=== PATIENT | male | born 1935 | race Caucasian/White ===

== ENCOUNTER → 2016-08-29 | Outpatient (CLI) | payer BC ==
[2016-08-29 12:32] LABS: CHOLESTEROL 169 mg/dl (0-200); CHOLESTEROL/HDL RATIO 2.9; HDL CHOLESTEROL 58 mg/dl; LDL CHOLESTEROL CALCULATED 90 mg/dl; PROSTATE SPECIFIC ANTIGEN < 0.010 ng/ml (0.000-4.000); TRIGLYCERIDES 105 mg/dl (0-150); VERY LOW DENSITY LIPOPROT CALC 21 mg/dl
[2016-09-02 15:30] LABS: SEX HORMONE BINDING GLOBULIN 51 nmol/L (22-77); TESTOSTERONE,TOTAL 540 ng/dL (250-1100); ZZ25HYDROXYVITAMIN D2+D3 48 ng/mL (30-100)
[2016-09-04 02:19] LABS: REFERENCE QUEST TEST REPORT
== END | disposition home or self-care (01) ==
LOC: C.LAB 10:53
DX: E78.5 Hyperlipidemia, unspecified (principal); E55.9 Vitamin D deficiency, unspecified; C61 Malignant neoplasm of prostate; Z79.899 Other long term (current) drug therapy; R35.8 Other polyuria

== ENCOUNTER → 2017-01-07 | Outpatient (CLI) | payer BC ==
--- NOTE | 2017-01-07 14:39 | DIAGNOSTIC IMAGING REPORT ---
R FOOT MIN 3 VIEWS ROUTINE CLINICAL HISTORY: 81 years-old Male presenting with JAMMED TOE, pain at the third metatarsal. TECHNIQUE: Frontal, oblique, and lateral views of the right foot were obtained. COMPARISON: Correlation made to plain radiographs of the left foot from 2010. FINDINGS: Mildly impacted fracture of the base of the proximal phalanx of the third toe. No other definite fracture. The third metatarsophalangeal joint is preserved. Degenerative change of the first metatarsophalangeal joint noted. Prominent enthesophyte at the insertion of the Achilles tendon. Atherosclerosis. No significant soft tissue abnormality. IMPRESSION: Mildly impacted fracture of the base of the proximal phalanx of the third toe. The third MTP joint is spared Electronically signed by: Alonzo Johnson M.D. 01/07/2017 2:38 PM Dictated Date/Time: 01/07/2017 2:36 PM
== END ==
LOC: C.RAD 14:19
DX: S92.511A Displaced fracture of proximal phalanx of right lesser toe(s), initial encounter for closed fracture (principal); X58.XXXA Exposure to other specified factors, initial encounter

== ENCOUNTER → 2017-03-02 | Outpatient (CLI) | payer BC | END | disposition home or self-care (01) | LOC: C.LAB 11:27 | PROVIDERS: ATTEND Specialist | DX: C61 Malignant neoplasm of prostate (principal); Z79.899 Other long term (current) drug therapy; R35.8 Other polyuria; E55.9 Vitamin D deficiency, unspecified; E78.5 Hyperlipidemia, unspecified ==

== ENCOUNTER → 2017-08-18 | Outpatient (CLI) | payer BC ==
--- NOTE | 2017-08-18 21:35 | ECHOCARDIOGRAM REPORT ---
*NOTICE TO RECEIVING [employer] This information is strictly Confidential and protected under [place] law. [place] law prohibits you from making any further disclosure of this information unless further disclosure is expressly permitted by the written consent of the person to whom it pertains or is authorized by law. A general authorization for the release of medical or other information is not sufficient for this purpose. Hospital accepts no responsibility if the information is made available to any other person, INCLUDING THE PATIENT. Interpretation Summary * Name: GABRIELA VIVAS Study Date: 08/18/2017 01:15 PM BP: 149/82 mmHg * Patient Location: [facility] HR: 60 * : 1935 (M/d/yyyy) Gender: Male Height: 69 in * Age: 82 yrs Ethnicity: [place] Weight: 168 lb * Ordering Physician: James Iglesias * Referring Physician: James Iglesias D.O. * Performed By: Ruma Mott RCS * * Reason For Study: AORTIC STENOSIS * BSA: 1.9 m2 * -- Conclusions -- * 1. Normal left ventricular size and systolic function. EF 55-60%. No regional wall motion abnormalities. Mild concentric left ventricular hypertrophy. Type 1 diastolic dysfunction. * 2. There is moderate mitral annular calcification. * 3. There is mild to moderate mitral regurgitation. * 4. Sclerotic aortic valve without significant stenosis. * 5. Normal estimated right ventricular systolic pressure. * 6. Compared to prior study on 09/12/2013, similar findings. Procedure Details * A complete two-dimensional transthoracic echocardiogram was performed (2D, M-mode, Doppler and color flow Doppler). Left Ventricle * Normal left ventricular size and systolic function. EF 55-60%. No regional wall motion abnormalities. Mild concentric left ventricular hypertrophy. Type 1 diastolic dysfunction. Right Ventricle * Borderline right ventricular enlargement. * The right ventricular systolic function is normal as assessed by tricuspid annular plane systolic excursion (TAPSE) (normal >1.5 cm). Atria * The left atrial size is normal. * Right atrial size is normal. * There is no evidence of atrial septal defect, but resolution does not allow assessment for a patent foramen ovale. Mitral Valve * There is moderate mitral annular calcification. * There is no mitral valve stenosis. * There is mild to moderate mitral regurgitation. Tricuspid Valve * The tricuspid valve is not well visualized, but is grossly normal. * There is no tricuspid stenosis. * There is trace tricuspid regurgitation. Aortic Valve * The aortic valve is trileaflet. * Sclerotic aortic valve without significant stenosis. Pulmonic Valve * The pulmonary valve is inadequately visualized, but the Doppler data is adequate for interpretation. * There is no pulmonic valvular stenosis. * There is no significant pulmonary regurgitation. Great Vessels * The aortic root is normal size. * Ascending aorta of normal dimension Pericardium/Pleural * There is no pericardial effusion. Great Vessels * Normal inferior vena cava size and collapsability with sniff indicates a normal right atrial pressure of 3 mmHg MMode 2D Measurements and Calculations IVSd 1.3 cm IVSs 2.0 cm LVIDd 4.4 cm LVIDs 3.1 cm LVPWd 1.3 cm LVPWs 1.5 cm IVS/LVPW 0.98 FS 29.3 % EDV(Teich) 86.7 ml ESV(Teich) 37.7 ml EF(Teich) 56.5 % EDV(cubed) 83.9 ml ESV(cubed) 29.6 ml EF(cubed) 64.7 % % IVS thick 56.1 % % LVPW thick 19.0 % LV mass(C)d 210.0 grams LV mass(C)dI 109.5 grams/m\S\2 LV mass(C)s 217.9 grams LV mass(C)sI 113.6 grams/m\S\2 SV(Teich) 49.0 ml SI(Teich) 25.5 ml/m\S\2 SV(cubed) 54.3 ml SI(cubed) 28.3 ml/m\S\2 Ao root diam 3.5 cm Ao root area 9.6 cm\S\2 LA dimension 4.2 cm asc Aorta Diam 3.4 cm LA/Ao 1.2 LVOT diam 2.1 cm LVOT area 3.6 cm\S\2 LVAd ap4 30.9 cm\S\2 LVLd ap4 8.1 cm EDV(MOD-sp4) 97.5 ml EDV(sp4-el) 100.2 ml LVAs ap4 16.9 cm\S\2 LVLs ap4 6.7 cm ESV(MOD-sp4) 37.0 ml ESV(sp4-el) 36.1 ml EF(MOD-sp4) 62.0 % EF(sp4-el) 63.9 % LVAd ap2 27.0 cm\S\2 LVLd ap2 7.1 cm EDV(MOD-sp2) 89.1 ml EDV(sp2-el) 87.9 ml LVAs ap2 15.6 cm\S\2 LVLs ap2 6.1 cm ESV(MOD-sp2) 33.0 ml ESV(sp2-el) 33.7 ml EF(MOD-sp2) 62.9 % EF(sp2-el) 61.7 % LVLd %diff -15.03 % EDV(MOD-bp) 99.8 ml LVLs %diff -10.52 % ESV(MOD-bp) 36.4 ml EF(MOD-bp) 63.5 % SV(MOD-sp4) 60.5 ml SI(MOD-sp4) 31.5 ml/m\S\2 SV(MOD-sp2) 56.1 ml SI(MOD-sp2) 29.2 ml/m\S\2 SV(MOD-bp) 63.4 ml SI(MOD-bp) 33.1 ml/m\S\2 SV(sp4-el) 64.1 ml SI(sp4-el) 33.4 ml/m\S\2 SV(sp2-el) 54.2 ml SI(sp2-el) 28.3 ml/m\S\2 Doppler Measurements and Calculations MV E max imani 84.1 cm/sec MV A max imani 104.1 cm/sec MV E/A 0.81 MV P1/2t max imani 87.6 cm/sec MV P1/2t 104.9 msec MVA(P1/2t) 2.1 cm\S\2 MV dec slope 244.6 cm/sec\S\2 MV dec time 0.19 sec Ao V2 max 178.2 cm/sec Ao max PG 12.7 mmHg Ao max PG (full) 10.1 mmHg Ao V2 mean 121.3 cm/sec Ao mean PG 6.7 mmHg Ao mean PG (full) 5.6 mmHg Ao V2 VTI 37.1 cm ABRAHAM(I,A) 1.6 cm\S\2 ABRAHAM(I,D) 1.6 cm\S\2 ABRAHAM(V,A) 1.6 cm\S\2 ABRAHAM(V,D) 1.6 cm\S\2 LV V1 max PG 2.6 mmHg LV V1 mean PG 1.1 mmHg LV V1 max 81.2 cm/sec LV V1 mean 47.5 cm/sec LV V1 VTI 16.1 cm MR max imani 549.4 cm/sec MR max PG 120.7 mmHg SV(Ao) 354.3 ml SI(Ao) 184.7 ml/m\S\2 SV(LVOT) 57.9 ml SI(LVOT) 30.2 ml/m\S\2 PA V2 max 93.6 cm/sec PA max PG 3.5 mmHg TR max imani 240.2 cm/sec RVSP(TR) 26.3 mmHg RAP systole 3.0 mmHg
== END | disposition home or self-care (01) ==
LOC: C.CPL 13:05
DX: I35.0 Nonrheumatic aortic (valve) stenosis (principal)

== ENCOUNTER → 2017-11-18 | Outpatient (CLI) | payer BC ==
[2017-11-18 17:27] LABS: BLOOD UREA NITROGEN 16 mg/dl (7-18); CARBON DIOXIDE 29 mmol/L (21-32); CREATININE 1.17 mg/dl (0.60-1.40); GLUCOSE 132 mg/dl (70-99); POTASSIUM 4.1 mmol/L (3.5-5.1); SODIUM 139 mmol/L (136-145)
[2017-11-19 06:11] LABS: HEMOGLOBIN A1C 5.8 % (4.5-5.6)
== END | disposition home or self-care (01) ==
LOC: C.LAB 14:58
DX: R73.9 Hyperglycemia, unspecified (principal); E03.9 Hypothyroidism, unspecified; I10 Essential (primary) hypertension

== ENCOUNTER 2022-01-11 12:24 | Observation (INO) ==
[2022-01-11 13:53] LABS: Basophils # (auto) 0.04 K/uL (0-0.2); Basophils % (auto) 0.4 %; Eosinophils # (auto) 0.08 K/uL (0-0.50); Eosinophils % (auto) 0.8 %; Hematocrit (blood only) 40.3 % (40.1-51.0); Hemoglobin 14.1 g/dl (14.0-18.0); Immature Granulocytes # (auto) 0.06 K/uL (0.00-0.02); Immature Granulocytes % (auto) 0.6 %; Lymphocytes # (auto) 1.42 K/uL (1.2-3.4); Mean Corpuscular Hemoglobin 33.7 pg (25.0-34.0); Mean Corpuscular Volume 96.4 fL (80.0-100.0); Mean Platelet Volume 10.8 fL (9.4-12.4); Monocytes % (auto) 10.9 %; Neutrophils # (auto) 7.42 K/uL (1.4-6.5); Neutrophils % (auto) 73.3 %; Platelet Count 255 K/uL (130-400); RDW Coefficient of Variation 13.3 % (11.5-14.5); RDW Standard Deviation 47.4 fL (36.4-46.3); Red Blood Count 4.18 M/uL (4.63-6.08); White Blood Count 10.12 K/ul (4.8-10.8)
[2022-01-11 14:05] LABS: INR 1.2 (0.9-1.1); Partial Thromboplastin Ratio 1.1; Partial Thromboplastin Time 30.1 Seconds (21.0-31.0); Prothrombin Time 12.3 Seconds (9.0-12.0)
[2022-01-11 14:18] LABS: Troponin I High Sensitivity 16.7 pg/ml (0-20)
[2022-01-11 14:40] LABS: Albumin Globulin Ratio 1.2 (0.9-2); Albumin Level 3.6 gm/dl (3.4-5.0); BUN Creatinine Ratio 12.5 (10-20); Bilirubin,Total 1.6 mg/dl (0.2-1.0); Calcium 8.9 mg/dl (8.5-10.1); Creatinine Clr Calc Pharmacy 51.9 ml/min; Est GFR (African American) 75.5 ml/min; Est GFR (Non-African American) 65.2 ml/min; Globulin 2.9 gm/dl (2.5-4.0); Total Protein 6.5 gm/dl (6.0-8.3)
--- NOTE | 2022-01-11 14:44 | Emergency Department Note ---
Impression & Plan Heart block AV second degree, Bronchitis ED Provider Note NAME: GABRIELA VIVAS AGE: 86 SEX: M : 1935 ARRIVES VIA: Walk-In INFORMANT: Patient, ED PROVIDER(S): Sean Pablo DO CHIEF COMPLAINT: Abnormal EKG HPI: The patient is an 86-year-old male who presented to the emergency department for evaluation of abnormal EKG. The patient started having cough and cold symptoms over the course the last 3 to 5 days. He has noticed a cough which is sometimes productive. He denies having any fever. He has had no hemoptysis or chest pain. He denies having any lower extremity swelling. He went to [facility] to be seen and was sent to the emergency department because his EKG was abnormal. The patient denies having any palpitations. He does have some shortness of breath with exertion. He denies having any abdominal pain or weight loss. He states his symptoms are moderate. He has had no changes to his medications. He states has been compliant with his usual outpatient medications. ROS: See above HPI for pertinent positives & negatives. A total of 10 systems reviewed and were otherwise negative. PAST MEDICAL HISTORY: See Below PAST SURGICAL HISTORY: See Below FAMILY HISTORY: See Below SOCIAL HISTORY: See Below HOME MEDICATIONS: See Below ALLERGIES: See Below VITALS: See Below PHYSICAL EXAMINATION: GENERAL: Patient is awake alert in no acute distress patient is resting comfo rtably and showing no signs of anxiety EYES: The conjunctivae are clear. The pupils are round and reactive. EARS, NOSE, MOUTH AND THROAT: The nose is without any evidence of any deformity. Mucous membranes are moist. Tongue is midline. NECK: The neck is nontender and supple. RESPIRATORY: Scattered rhonchi were noted throughout. There is no conversational dyspnea or tachypnea. CARDIOVASCULAR: Irregular heart sounds were noted auscultation. No definite murmur was noted. GASTROINTESTINAL: The abdomen is soft. Abdomen is nontender. MUSCULOSKELETAL/EXTREMITIES: There is no evidence of gross deformity full range of motion is noted in the hips and shoulders. SKIN: There is no obvious evidence of any rash. There are no petechiae, pallor or cyanosis noted. NEUROLOGIC: Patient is awake alert and oriented x3 MEDICAL DECISION MAKING: The patient is an 86-year-old male who presented to the emergency department for evaluation of cough. The patient initially went to an urgent care center for a cough. He was noted to have an irregular heartbeat. He had a twelve-lead done and was sent to the emergency department because of a heart block. Initially I felt this was secondary to second-degree heart block type I. Eventually while patient was on the cardiac sonographer he had episodes that appear to be more consistent with second-degree heart block type II. He also had frequent PVCs. I discussed patient's laboratory and radiographic studies with him. I discussed his case with the on-call [facility] bilingual inside sales representative. I also discussed this ca se with the on-call [facility] hospitalist group. They have agreed to evaluate the patient for further management and disposition. Triage Nursing notes reviewed. Prior medical records reviewed Vital Signs: reviewed and remarkable for elevated blood pressure. Differential diagnosis: Premature contractions, electrolyte abnormality, cardiac dysrhythmia, thyroid dysfunction, pulmonary embolism, infection, gastrointestinal, as well as other pathologies. ER treatment provided: See below Diagnostics interpreted by me: ECG: EKG was obtained in the emergency department. My interpretation is heart block at 73 bpm. Frequent PVCs were noted. No acute ST segment abnormalities w ere noted. This was compared to a tracing from March 13, 2009. The changes are new compared to the previous tracing. Cardiac Monitoring: An order was placed for continuous cardiac monitoring. The monitor shows second-degree heart block with frequent PVCs at 70 bpm. Laboratory studies: As stated above and show below. Imaging studies: See below Consultation(s): I discussed this case with Carlos who is on-call for the [facility] hospitalist group. I discussed this case with Dr. Ruiz who is on-call for the [facility] cardiology group. Past Med/Surg History Medical History Hypertension Primary osteoarthritis of left knee Prostate cancer Social History Smoking Status: Never smoker Preferred Language: Slovak Feels Safe at Home: Yes Allergies Allergies Allergy/AdvReac Type Severity Reaction Status Date / Time No Known Allergies Allergy Unverified 11/02/19 09:10 Home Meds Home Medications Medication Instructions Recorded Confirmed atorvastatin 20 mg tablet 20 mg PO DAILY 11/02/19 11/02/19 lisinopril 20 mg tablet 20 mg PO DAILY 11/02/19 11/02/19 Results & Data (ED) Vital Signs Vital Signs - 24 hr 01/11/22 12:39 01/11/22 13:24 01/11/22 13:24 Temperature 36.9 C Temperature Source Temporal Artery Scan Pulse Rate 61 70 Pulse Rate from SpO2 Sensor Pulse Rhythm Regular Regular Pulse Strength Normal Respiratory Rate 18 19 Respiratory Effort / Characteristics Non-Labored Spontaneous Respiratory Depth Normal Respiratory Pattern Regular Blood Pressure 166/79 H Blood Pressure Mean 108 Blood Pressure Position Sitting Pulse Oximetry 96 98 97 Oxygen Delivery Method Room Air Room Air Sepsis Recent Fever Within 48 Hours No Sepsis New/Unexplained Change in Mental Status No Sepsis Action Taken by Nursing No Action Required 01/11/22 14:08 01/11/22 14:30 01/11/22 14:30 Temperature Temperature Source Pulse Rate 74 Pulse Rate from SpO2 Sensor 70 80 Pulse Rhythm Pulse Strength Respiratory Rate 13 Respiratory Effort / Characteristics Respiratory Depth Respiratory Pattern Blood Pressure 150/125 H Blood Pressure Mean 133 Blood Pressure Position Pulse Oximetry 96 90 Oxygen Delivery Method Sepsis Recent Fever Within 48 Hours Sepsis New/Unexplained Change in Mental Status Sepsis Action Taken by Nursing 01/11/22 15:00 01/11/22 15:30 01/11/22 15:31 Temperature Temperature Source Pulse Rate 76 90 Pulse Rate from SpO2 Sensor 42 L 46 L Pulse Rhythm Pulse Strength Respiratory Rate 18 26 H Respiratory Effort / Characteristics Respiratory Depth Respiratory Pattern Blood Pressure 135/113 H Blood Pressure Mean 120 Blood Pressure Position Pulse Oximetry 95 95 Oxygen Delivery Method Sepsis Recent Fever Within 48 Hours Sepsis New/Unexplained Change in Mental Status Sepsis Action Taken by Nursing 01/11/22 15:31 Temperature Temperature Source Pulse Rate 86 Pulse Rate from SpO2 Sensor 46 L Pulse Rhythm Pulse Strength Respiratory Rate 23 Respiratory Effort / Characteristics Respiratory Depth Respiratory Pattern Blood Pressure Blood Pressure Mean Blood Pressure Position Pulse Oximetry 94 Oxygen Delivery Method Sepsis Recent Fever Within 48 Hours Sepsis New/Unexplained Change in Mental Status Sepsis Action Taken by [facility] Medications Current Medication List: was personally reviewed by me Laboratory Data Attestation: I reviewed the patient's lab results. Result diagrams: 01/11/22 13:43 01/11/22 13:43 Lab Results 01/11/22 01/11/22 01/11/22 Range/Units 13:43 13:43 13:43 WBC 10.12 (4.8-10.8) K/ul RBC 4.18 L (4.63-6.08) M/uL Hgb 14.1 (14.0-18.0) g/dl Hct 40.3 (40.1-51.0) % MCV 96.4 (80.0-100.0) fL MCH 33.7 (25.0-34.0) pg MCHC 35.0 (32.0-36.0) g/dL RDW Std Deviation 47.4 H (36.4-46.3) fL RDW Coeff of Diamond 13.3 (11.5-14.5) % Plt Count 255 (130-400) K/uL MPV 10.8 (9.4-12.4) fL Immature Gran % (Auto) 0.6 % Neut % (Auto) 73.3 % Lymph % (Auto) 14.0 % [place] % (Auto) 10.9 % Eos % (Auto) 0.8 % Baso % (Auto) 0.4 % Neut # (Auto) 7.42 H (1.4-6.5) K/uL Lymph # (Auto) 1.42 (1.2-3.4) K/uL [place] # (Auto) 1.10 H (0.24-0.82) K/uL Eos # (Auto) 0.08 (0-0.50) K/uL Baso # (Auto) 0.04 (0-0.2) K/uL Immature Gran # (Auto) 0.06 H (0.00-0.02) K/uL PT 12.3 H (9.0-12.0) Seconds INR 1.2 H (0.9-1.1) APTT 30.1 (21.0-31.0) Seconds PTT Ratio 1.1 Sodium 138 (136-145) mmol/L Potassium 4.0 (3.5-5.1) mmol/L Chloride 102 (98-107) mmol/L Carbon Dioxide 30 (21-32) mmol/L Anion Gap 6 (3-11) BUN 13 (6-23) mg/dl Creatinine 1.04 (0.6-1.4) mg/dl Est Cr Clr Drug Dosing 51.9 ml/min Est GFR ( Amer) 75.5 ml/min Est GFR (Non-Af Amer) 65.2 ml/min BUN/Creatinine Ratio 12.5 (10-20) Glucose 100 H (70-99(Fasting)) mg/dl Calcium 8.9 (8.5-10.1) mg/dl Magnesium (1.7-2.4) mg/dl Total Bilirubin 1.6 H (0.2-1.0) mg/dl AST 17 (13-39) U/L ALT 20 (7-52) U/L Alkaline Phosphatase 63 (34-104) U/L Troponin I High Sens 16.7 (0-20) pg/ml Total Protein 6.5 (6.0-8.3) gm/dl Albumin 3.6 (3.4-5.0) gm/dl Globulin 2.9 (2.5-4.0) gm/dl Albumin/Globulin Ratio 1.2 (0.9-2) TSH (0.300-4.500) uIu/ml 01/11/22 01/11/22 Range/Units 13:43 13:43 WBC (4.8-10.8) K/ul RBC (4.63-6.08) M/uL Hgb (14.0-18.0) g/dl Hct (40.1-51.0) % MCV (80.0-100.0) fL MCH (25.0-34.0) pg MCHC (32.0-36.0) g/dL RDW Std Deviation (36.4-46.3) fL RDW Coeff of Diamond (11.5-14.5) % Plt Count (130-400) K/uL MPV (9.4-12.4) fL Immature Gran % (Auto) % Neut % (Auto) % Lymph % (Auto) % [place] % (Auto) % Eos % (Auto) % Baso % (Auto) % Neut # (Auto) (1.4-6.5) K/uL Lymph # (Auto) (1.2-3.4) K/uL [place] # (Auto) (0.24-0.82) K/uL Eos # (Auto) (0-0.50) K/uL Baso # (Auto) (0-0.2) K/uL Immature Gran # (Auto) (0.00-0.02) K/uL PT (9.0-12.0) Seconds INR (0.9-1.1) APTT (21.0-31.0) Seconds PTT Ratio Sodium (136-145) mmol/L Potassium (3.5-5.1) mmol/L Chloride (98-107) mmol/L Carbon Dioxide (21-32) mmol/L Anion Gap (3-11) BUN (6-23) mg/dl Creatinine (0.6-1.4) mg/dl Est Cr Clr Drug Dosing ml/min Est GFR ( Amer) ml/min Est GFR (Non-Af Amer) ml/min BUN/Creatinine Ratio (10-20) Glucose (70-99(Fasting)) mg/dl Calcium (8.5-10.1) mg/dl Magnesium 2.1 (1.7-2.4) mg/dl Total Bilirubin (0.2-1.0) mg/dl AST (13-39) U/L ALT (7-52) U/L Alkaline Phosphatase (34-104) U/L Troponin I High Sens (0-20) pg/ml Total Protein (6.0-8.3) gm/dl Albumin (3.4-5.0) gm/dl Globulin (2.5-4.0) gm/dl Albumin/Globulin Ratio (0.9-2) TSH 0.794 (0.300-4.500) uIu/ml Discharge Plan Visit Data Chief Complaint: Cardiac Assessment Stated Complaint: COUGH, SOB, ABNORMAL EKG ED Provider: Sean Pablo Discharge Problem: Heart block AV second degree, Bronchitis Patient Disposition: Being Evaluated by Hospitalist Forms Stand Alone Forms: My [facility] Prescriptions Prescriptions: No Action triamcinolone acetonide [Kenalog] 40 mg/mL suspension 80 mg IA ONCE Qty: 2 0RF lisinopril 20 mg tablet 20 mg PO DAILY atorvastatin 20 mg tablet 20 mg PO DAILY Referrals Referrals: Roverto Kwok, [Primary Care Provider] -
[2022-01-11] MEDS ORDERED: BENZONATATE 100 MG CAPSULE PO ONE (15:36)
[2022-01-11] MEDS ORDERED: ALBUT/IPRATROP 3MG/0.5MG NEB 3 ML VIAL NEB STA (15:36)
--- NOTE | 2022-01-11 15:52 | History & Physical Report ---
Date of Service January 11, 2022 Assessment & Plan (1) Heart block AV second degree: Plan: -Admit to med tele -Patient is currently afebrile, hemodynamically stable, and stable on RA -Patient currently with irregular rhythm, ECG obtained in the ED looks more like a Mobitz type I block but difficult to tell -Patient has been asymptomatic -Spoke with Dr. Ruiz of Cardiology, appreciate his help, recommended observation on tele overnight and to obtain new echo -TTE ordered, will monitor on tele, Cardiology consult placed -AM CBC and BMP (2) Bronchitis: Plan: -No leukocytosis or left shift on labs from today -Chest xray without obvious consolidation, will wait for final read -Patient has been afebrile, will add on procal -Hold abx for now and treat symptomatically with Robitussin and DuoNebs -Confirmed with the patient that he has been on Lisinopril for 2+ years and has never developed a cough while on it (3) Hypertension: Plan: -Hemodynamically stable -Continue lisinopril Plan The patient was discussed with Dr. Garcia at the time of admission History of Present Illness Chief Complaint: Abnormal ECG at acute care Primary Care Provider: Roverto KwokDO Orr is an 86 year old male with a PMH significant for HTN, hyperlipidemia, adenocarcinoma of the prostate, mitral regurgitation, aortic valve sclerosis, and osteoporosis who presented to the [facility] on 01/11/22 after being sent from acute care for abnormal ECG. Per the ED staff, the patient developed a cough approximately one week ago. Today he went to acute care to be seen for his cough and then noticed his heart sounded irregular on exam. They obtained an ECG and were concerned for possible heart block and sent him to the ED. In the ED the patient was found to be afebrile, hemodynamically stable, and stable on room air. Labs were unremarkable including a high sensitivity troponin of 16.7. The patient was monitored on tele while in the ED and there was concern for possible Mobitz type II block. Chest xray was pending at the time of the admission. We were asked to admit the patient for further monitoring and workup of the possible arrhythmia. At the time of the exam the patient was resting comfortably in bed in no acute distress with his sitting bedside. He states that he has had a productive cough for the past week. The patient and his stay very active and he states that he has not experienced recent chest pain, SOB, light headedness, dizziness, or syncope. They are often outside hiking and biking but he has not noticed any recent tick bites. He states the he checks his blood pressure a few times a week and the BP cuff also checks his heart rate. Recently he has noticed that his HR will fall into the 40's, normally his baseline is in the 60's. He has not noticed significant changes in his blood pressure. When asked, he denies symptoms when his HR is that low. When asked about previous heart murmurs he states that his old pcp who recently retired mentioned something about a murmur and doing surveillance echo every 6 months. I spoke to he and his about staying overnight to be monitored, obtaining a new echo, and being seen by cardiology, they would like to proceed with that plan. Allergies Allergy/AdvReac Type Severity Reaction Status Date / Time No Known Allergies Allergy Verified 01/11/22 15:45 Home Medications Medication Instructions Recorded Confirmed Type atorvastatin 20 mg tablet 20 mg PO DAILY 11/02/19 01/11/22 History lisinopril 20 mg tablet 20 mg PO DAILY 11/02/19 01/11/22 History cholecalciferol (vitamin D3) 125 125 mcg PO DAILY 01/11/22 01/11/22 History mcg (5,000 unit) tablet (Vitamin D3) coenzyme Q10 100 mg capsule 100 mg PO DAILY 01/11/22 01/11/22 History (CoQ-10) cyanocobalamin (vitamin B-12) 1,000 mcg PO DAILY 01/11/22 01/11/22 History 1,000 mcg tablet (Vitamin B-12) herbal drugs 2 cap PO DAILY 01/11/22 01/11/22 History omega 9-eeb-tbg-fish oil 1,000 mg 1 cap PO DAILY 01/11/22 01/11/22 History (120 mg-180 mg) capsule (Fish Oil) pentoxifylline 400 mg 400 mg PO BIDM 01/11/22 01/11/22 History tablet,extended release psyllium husk 0.52 gram capsule 1.04 g PO DAILY 01/11/22 01/11/22 History sildenafil (pulm.hypertension) 20 20 - 1,000 mg PO DIRECTED PRN 01/11/22 01/11/22 History mg tablet Sexual Activity vit C 250 mg-vit E 90 mg-zinc 40 1 tab PO BID 01/11/22 01/11/22 History mg-copper 1 [id number]-[id number] capsule (PreserVision AREDS-2) Past Med/Surg History Medical History (Updated 01/11/22 @ 16:23 by Carlos Coppola PA-C) Hypertension Primary osteoarthritis of left knee Prostate cancer Social History Smoking Status: Never smoker Preferred Language: Moldovan Feels Safe at Home: Yes Review of Systems Review of Systems: Denies current fever, chills, headache, changes in vision, hearing, taste, and smell, chest pain, SOB, abdominal pain, nausea, vomiting, diarrhea, hematemesis, melena, dysuria, hematuria, and recent falls. All systems have been reviewed and are otherwise negative. Physical Exam Physical Exam: Physical Exam: General: In no acute distress, younger than stated age, well-nourished, good hygiene HEENT: Normocephalic, atraumatic, no scleral icterus, pupils around round, symmetrical, and reactive to light, moist mucus membranes, no JVD, trachea midline, no thyromegaly Chest/Pulm: No respiratory distress, symmetrical chest expansion, expiratory wheezing noted throughout the BL lungs Cardiac: regular rate, irregular rhythm, 4/6 systolic murmur noted Abdomen: Negative for ascites and bruising, normoactive bowel sounds, soft, non-tender to palpation throughout Musculoskeletal: Symmetrical and without signs of acute trauma, upper and lower extremities with full ROM, no atrophy, spasticity, or flaccidity Extremities: Radial, dorsalis pedis, and posterior tibial pulses are intact and symmetrical, no edema noted in the BL LE's Skin: Warm, dry, no rashes , lesions, or scars noted Neuro: Alert and oriented to person, place, month, year, and president, no focal defects, CN II-XII tested and intact, finger to nose test negative, no tremors noted Psych: No acute distress, calm and cooperative during the exam Results & Data Results & Data ([facility]) Vital Signs (Past 12 Hours) Vital Signs Temp Pulse Resp BP Pulse Ox O2 Del Method 01/11/22 15:31 86 23 94 01/11/22 15:31 135/113 H 01/11/22 15:30 90 26 H 95 01/11/22 15:00 76 18 95 01/11/22 14:30 74 13 90 01/11/22 14:30 150/125 H 01/11/22 14:08 96 01/11/22 13:24 70 19 97 01/11/22 13:24 98 Room Air 01/11/22 12:39 36.9 C 61 18 166/79 H 96 Room Air Laboratory Results Abnormal lab results 01/11/22 01/11/22 01/11/22 Range/Units 13:43 13:43 13:43 RBC 4.18 L (4.63-6.08) M/uL RDW Std Deviation 47.4 H (36.4-46.3) fL Neut # (Auto) 7.42 H (1.4-6.5) K/uL [place] # (Auto) 1.10 H (0.24-0.82) K/uL Immature Gran # (Auto) 0.06 H (0.00-0.02) K/uL PT 12.3 H (9.0-12.0) Seconds INR 1.2 H (0.9-1.1) Glucose 100 H (70-99(Fasting)) mg/dl Total Bilirubin 1.6 H (0.2-1.0) mg/dl ECG Additional Comments: Poor data quality, interpretation may be adversely affected Sinus rhythm with 1st degree A-V block with frequent Premature ventricular complexes Left axis deviation Abnormal ECG When compared with ECG of 13-MAR-2009 15:40, Premature ventricular complexes are now Present QRS axis Shifted left Code Status & VTE Plan Code Status full code VTE Prophylaxis Plan VTE Prophylaxis will be ordered: Yes PG Care Time/CCT Total # of Minutes Spent Total Time Spent with Patient: Total time spent is greater than 50% in coordination of care (as documented) at patient's floor/unit and/or counseling patient: Coding Level of Care Code New Pt INT OBSERVATION CARE 50M LVL 2 Patient Type New History Comprehensive Exam Comprehensive Medical Decision Making Moderate Complexity Diagnoses Heart block AV second degree I44.1 Bronchitis J40 Hypertension I10
[2022-01-11 16:25] LABS: Influenza A virus by PCR Negative (Neg); Influenza B virus by PCR Negative (Neg); RSV by PCR Negative (Neg); SARS CoV2 RNA(COVID-19) InHosp NEGATIVE (Negative)
--- NOTE | 2022-01-11 16:55 | Electrocardiogram Report ---
Test Reason : Blood Pressure : / mmHG Vent. Rate : 073 BPM Atrial Rate : 073 BPM P-R Int : 280 ms QRS Dur : 092 ms QT Int : 400 ms P-R-T Axes : 000 -35 069 degrees QTc Int : 440 ms Poor data quality, interpretation may be adversely affected Sinus rhythm with 1st degree A-V block with frequent Premature ventricular complexes Left axis deviation Abnormal ECG When compared with ECG of 13-MAR-2009 15:40, Premature ventricular complexes are now Present QRS axis Shifted left Confirmed by Usman Ruiz ([id number]) on 01/11/2022 4:55:14 PM Referred By: Confirmed By:Usman Ruiz
[2022-01-11 17:07] LABS: Lyme Ab IgG w/WB Rflx Negative (Negative)
--- NOTE | 2022-01-11 17:18 | XRay Report ---
XR chest 1V portable CLINICAL HISTORY: Palpitations. COMPARISON STUDY: Chest radiograph September 07, 2015. FINDINGS: Lung volumes are normal. Lungs are clear. There is no pneumothorax or pleural effusion. The re is mild cardiomegaly. Mediastinal contours are normal. There is no evidence for pulmonary edema. M ild interstitial thickening is likely within normal limits. IMPRESSION: No acute cardiopulmonary findings. Cardiomegaly. ACT 112: Negative or not required by law. Electronically signed by: Dereck Orozco M.D. 01/11/2022 5:17 PM
[2022-01-11 17:28] LABS: Lyme Ab IgM w/WB Rflx Equivocal (Negative)
[2022-01-11] MEDS ORDERED: ACETAMINOPHEN 325 MG TAB PO PRN (19:25)
[2022-01-11] MEDS ORDERED: ALBUT/IPRATROP 3MG/0.5MG NEB 3 ML VIAL NEB SCH (19:25)
[2022-01-11] MEDS ORDERED: ENOXAPARIN INJ 40 MG/0.4 ML SYR SQ SCH (19:25)
[2022-01-11] MEDS ORDERED: PNEUMOCOCCAL POLYSACCHARIDES 25 MCG/0.5 ML VIAL/SYR IM ONE (20:03)
[2022-01-11] MEDS ORDERED: INFLUENZA VACCINE HIGH DOSE PF 65+ 0.7 ML SYR IM ONE (20:03)
[2022-01-11] MEDS: PENTOXIFYLLINE 400MG EXT REL TAB PO SCH (20:09)
[2022-01-11] MEDS ORDERED: ALBUT/IPRATROP 3MG/0.5MG NEB 3 ML VIAL NEB PRN (20:27)
[2022-01-12 07:17] LABS: Hematocrit (blood only) 38.6 % (40.1-51.0); Hemoglobin 13.5 g/dl (14.0-18.0); Mean Corpuscular Hemoglobin 33.4 pg (25.0-34.0); Mean Corpuscular Volume 95.5 fL (80.0-100.0); Mean Platelet Volume 10.9 fL (9.4-12.4); Platelet Count 257 K/uL (130-400); RDW Coefficient of Variation 13.1 % (11.5-14.5); RDW Standard Deviation 45.9 fL (36.4-46.3); Red Blood Count 4.04 M/uL (4.63-6.08); White Blood Count 9.74 K/ul (4.8-10.8)
[2022-01-12 08:04] LABS: BUN Creatinine Ratio 14.1 (10-20); Calcium 8.7 mg/dl (8.5-10.1); Creatinine Clr Calc Pharmacy 54.6 ml/min; Est GFR (African American) 80.2 ml/min; Est GFR (Non-African American) 69.2 ml/min; Potassium 3.7 mmol/L (3.5-5.1)
[2022-01-12] MEDS ORDERED: ATORVASTATIN 20 MG TAB PO SCH (09:00)
[2022-01-12] MEDS ORDERED: CYANOCOBALAMIN (B-12) 500 MCG TABLET PO SCH (09:00)
[2022-01-12] MEDS ORDERED: CHOLECALCIFEROL 5,000 UNITS 125 MCG TAB PO SCH (09:00)
[2022-01-12] MEDS ORDERED: NON-FORMULARY MEDICATION (Coenzyme Q10 [Coq-10] 100 mg Capsule) PO SCH (09:00)
[2022-01-12] MEDS ORDERED: OMEGA-3 (PURIFIED FISH OIL) 1 GM CAP PO SCH (09:00)
[2022-01-12] MEDS ORDERED: lisinopril 20 MG TAB PO SCH (09:00)
[2022-01-12] MEDS: PENTOXIFYLLINE 400MG EXT REL TAB PO SCH ×2 (09:33→17:57)
[2022-01-12] MEDS: guaiFENesin SUGAR FREE 200 MG/10 ML UDC PO PRN ×2 (09:33→16:19)
--- NOTE | 2022-01-12 11:38 | XCELERA ---
[id number]}___[id number]
--- NOTE | 2022-01-12 16:55 | Cardiology Consultation ---
Date of Consultation January 12, 2022 Assessment & Plan (1) Mobitz (type) I (Wenckebach's) atrioventricular block: (2) Frequent PVCs: (3) Aortic stenosis: (4) Hypertension: (5) Dyslipidemia: Plan ASSESSMENT/PLAN: 1. Mobitz 1: Based on review of telemetry, no evidence of more advanced AV block noted. No specific intervention necessary therapeutically at this time. He is completely asymptomatic. Recommend 30 day event monitor as an outpatient. This has been requested through the cardiology outpatient office. Seek immediate medical attention for symptoms such as lightheadedness, syncope, or near-syncope. 2. Aortic stenosis: Discussed the diagnosis and natural history. Non severe, currently moderate based on echo. He is asymptomatic. Can continue with his usual exercise. Discussed symptoms that may occur for more significant stenosis and he should seek medical attention if they should occur, such as lightheadedness, syncope, near-syncope, chest pain, shortness of breath, and reduced exercise tolerance. No indication for aortic valve replacement at this time. Will monitor as an outpatient. 3. PVCs: Discussed the diagnosis. Asymptomatic. This is the likely cause for his reduced heart rate on blood pressure monitoring, due to a pulse deficit. This was discussed with he and his family. 4. Hypertension: Blood pressure has been acceptable to mildly hypertensive at times. No changes made at this time. 5. Dyslipidemia: He is on statin therapy as directed by his PCP. 6. Cough: He is concerned about bronchitis. Will defer to hospitalist service. 7. Disposition: Follow-up in the cardiology outpatient office in about 6 weeks, so that a 4 week event monitor can be performed prior. This has been requested through the outpatient office and will likely be arranged at the beginning of this upcoming week. Plan of care was communicated to patient, his , and his son who were present at the bedside. His daughter and granddaughter participated via speaker phone. Plan of care communicated with Dr. Garcia, primary hospitalist. Today's visit was 48 minutes in duration, which includes examining patient, counseling patient and multiple family members, coordinating care, reviewing records, and completing documentation. Thank you for allowing me to participate in the care of your patient. Please call for any other questions or concerns. Sincerely, Parviz Toscano M.D. History of Present Illness Reason for Consultation: "Arrhythmia Requesting Physician: Carlos Coppola Attending Physician: Harmeet Garcia History of Present Illness Mr. Lowe ('grace mendenhall') is a very pleasant 86-year-old gentleman with a history significant for hypertension and dyslipidemia. He was hospitalized on 01/11/2022 after going to Urgent Care setting for cough, concerning for bronchitis. While there, he was noted to have an abnormal ECG, concerning for heart block and was sent to the emergency department. He states that he has not been having any fevers but has had a nonproductive cough. It feels as though there is sputum but is difficult to bring up the sputum. There was concern for second-degree AV block according to admitting note. He was completely asymptomatic in this regard. He denies syncope, near-syncope, shortness of breath, chest pain, palpitations. He also denies edema, melena, hematochezia, or hematuria. He is very active. He rides bicycle 3 days per week, for at least 20 miles each day. He recently road over 120 miles at [place], within the past 1.5 weeks and did so without cardiac issues. He also enjoys golfing. Exercise tolerance has remained stable. He notes that for the past month or so while checking his blood pressure his heart rate has been in the 40s when it was chronically in the 60s. Once again, he was completely asymptomatic. Review of systems: As above. Review of systems otherwise negative/unremarkable. Family history: Father had pacemaker in his 70s and at the age of 74 from [place]. Social history: He denies tobacco or drug abuse. Occasional alcohol. Lives at home with his . Two children. He has a granddaughter, Alma, who is a physician engineer assistant in [place]. 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 At the end of today's visit, his son, Héctor, and his presented at the bedside. Allergies Allergy/AdvReac Type Severity Reaction Status Date / Time No Known Allergies Allergy Verified 01/11/22 15:45 Home Medications Medication Instructions Recorded Confirmed Type atorvastatin 20 mg tablet 20 mg PO DAILY 11/02/19 01/11/22 History lisinopril 20 mg tablet 20 mg PO DAILY 11/02/19 01/11/22 History cholecalciferol (vitamin D3) 125 125 mcg PO DAILY 01/11/22 01/11/22 History mcg (5,000 unit) tablet (Vitamin D3) coenzyme Q10 100 mg capsule 100 mg PO DAILY 01/11/22 01/11/22 History (CoQ-10) cyanocobalamin (vitamin B-12) 1,000 mcg PO DAILY 01/11/22 01/11/22 History 1,000 mcg tablet (Vitamin B-12) herbal drugs 2 cap PO DAILY 01/11/22 01/11/22 History omega 0-xyn-tvk-fish oil 1,000 mg 1 cap PO DAILY 01/11/22 01/11/22 History (120 mg-180 mg) capsule (Fish Oil) pentoxifylline 400 mg 400 mg PO BIDM 01/11/22 01/11/22 History tablet,extended release psyllium husk 0.52 gram capsule 1.04 g PO DAILY 01/11/22 01/11/22 History sildenafil (pulm.hypertension) 20 20 - 1,000 mg PO DIRECTED PRN 01/11/22 01/11/22 History mg tablet Sexual Activity vit C 250 mg-vit E 90 mg-zinc 40 1 tab PO BID 01/11/22 01/11/22 History mg-copper 1 [id number]-[id number] capsule (PreserVision AREDS-2) Patient History Medical History (Updated 01/12/22 @ 17:03 by Ernesto Toscano MD) Aortic stenosis Dyslipidemia Frequent PVCs Hypertension Mobitz (type) I (Wenckebach's) atrioventricular block Primary osteoarthritis of left knee Prostate cancer Social History Smoking Status: Never smoker Hx Alcohol Use: Yes Alcohol type: beer Hx Substance Use: No Preferred Language: Emirati Communication Ability: Effective Brazing Machine Feeder Required: No Beliefs That Will Affect Care: None Current Living Situation: Spouse Other Information That Helps Us Care for You: No Feels Safe at Home: Yes Safety Concerns: Feels Safe At This Time Assistive Devices: None Physical Exam Physical Exam: Gen.: No acute distress. Alert and oriented. HEENT: Anicteric sclera. Neck: No JVD. Bilateral bruits vs radiation of cardiac murmur. Normal carotid upstrokes bilaterally. Cardiac: PMI was nondisplaced. No ventricular heave. Regular with frequent ectopy. Normal S1-S2. 2/6 mid peaking systolic ejection murmur heard best at right upper sternal border. No rubs or gallops. Pulmonary: Bibasilar crackles, but otherwise clear to auscultation bilaterally. Abdomen: Soft, nontender, nondistended, with normoactive bowel sounds. No bruits noted. Extremities: 2+ radial pulses bilaterally. 2+ posterior tibialis pulses bilaterally. No edema or cyanosis. Psychiatric: Affect appears appropriate. Results & Data ([facility]) Vital Signs (Past 12 Hours) Vital Signs Temp Pulse Pulse Resp BP Pulse Ox O2 Del Method 01/12/22 15:28 36.3 C L 74 20 155/68 H 96 Room Air 01/12/22 12:00 Room Air 01/12/22 11:45 36.3 C L 52 L 20 163/82 H 94 Room Air 01/12/22 07:54 84 01/12/22 07:37 36.8 C 59 L 18 155/82 H 95 Room Air Intake & Output 01/10/22 01/11/22 01/12/22 01/13/22 06:59 06:59 06:59 06:59 Intake Total 50 / 50 Balance 50 / 50 Weight 165 lb 5.547 oz Laboratory Results Laboratory Results - last 24 hr 01/11/22 01/11/22 01/11/22 13:43 13:43 13:43 WBC RBC Hgb Hct MCV MCH MCHC RDW Std Deviation RDW Coeff of Diamond Plt Count MPV Sodium Potassium Chloride Carbon Dioxide Anion Gap BUN Creatinine Est Cr Clr Drug Dosing Est GFR ( Amer) Est GFR (Non-Af Amer) BUN/Creatinine Ratio Glucose Calcium Procalcitonin < 0.05 Lyme Disease IgG Ab Negative Lyme IgG (Western Blot) Pending Lyme IgG 18 kDa Band Pending Lyme IgG 23 kDa Band Pending Lyme IgG 28 kDa Band Pending Lyme IgG 30 kDa Band Pending Lyme IgG 39 kDa Band Pending Lyme IgG 41 kDa Band Pending Lyme IgG 45 kDa Band Pending Lyme IgG 58 kDa Band Pending Lyme IgG 66 kDa Band Pending Lyme IgG 93 kDa Band Pending Lyme IgM Ab (WB) Pending Lyme Disease IgM Ab Equivocal A Lyme IgM 23 kDa Band Pending Lyme IgM 39 kDa Band Pending Lyme IgM 41 kDa Band Pending 01/12/22 01/12/22 06:48 06:48 WBC 9.74 RBC 4.04 L Hgb 13.5 L Hct 38.6 L MCV 95.5 MCH 33.4 MCHC 35.0 RDW Std Deviation 45.9 RDW Coeff of Diamond 13.1 Plt Count 257 MPV 10.9 Sodium 132 L Potassium 3.7 Chloride 100 Carbon Dioxide 27 Anion Gap 5 BUN 14 Creatinine 0.99 Est Cr Clr Drug Dosing 54.6 Est GFR ( Amer) 80.2 Est GFR (Non-Af Amer) 69.2 BUN/Creatinine Ratio 14.1 Glucose 110 H Calcium 8.7 Procalcitonin Lyme Disease IgG Ab Lyme IgG (Western Blot) Lyme IgG 18 kDa Band Lyme IgG 23 kDa Band Lyme IgG 28 kDa Band Lyme IgG 30 kDa Band Lyme IgG 39 kDa Band Lyme IgG 41 kDa Band Lyme IgG 45 kDa Band Lyme IgG 58 kDa Band Lyme IgG 66 kDa Band Lyme IgG 93 kDa Band Lyme IgM Ab (WB) Lyme Disease IgM Ab Lyme IgM 23 kDa Band Lyme IgM 39 kDa Band Lyme IgM 41 kDa Band Diagnostic Findings Chest x-ray 01/11/2022: No obvious infiltrate on my review. Radiology reports as no acute cardiopulmonary findings. Echo 01/12/2022: Normal LV size. EF 50-55%. Normal wall motion. PVCs in bigeminal fashion. Mildly dilated RV with normal systolic function. Biatrial dilation. Moderate . Mild MR. Normal RVSP. Telemetry personally reviewed: Sinus rhythm with PVCs. MA interval is prolonged. There are rhythm strips that suggest Mobitz 1. No significant pause. ECG personally reviewed 01/11/2022 at 1:34 p.m.: Sinus rhythm with Mobitz 1 with PVCs. Medications Administered Current Inpatient Medications Acetaminophen (Acetaminophen 325 Mg Tab) 650 mg PO Q4H PRN PRN Reason: pain (1,2,3)/fever Stop: 02/10/22 19:24 Albuterol (Albut/Ipratrop 3mg/0.5mg Neb 3 Ml Vial) 3 ml NEB Q4R PRN; Protocol PRN Reason: Wheezing Stop: 02/10/22 19:24 Atorvastatin Calcium (Atorvastatin 20 Mg Tab) 20 mg PO DAILY NIEVES Stop: 02/11/22 08:59 Last Admin: 01/12/22 09:33 Dose: 20 mg Cyanocobalamin (Cyanocobalamin (B-12) 500 Mcg Tablet) 1,000 mcg PO DAILY NIEVES Stop: 02/11/22 08:59 Last Admin: 01/12/22 12:39 Dose: 1,000 mcg Enoxaparin Sodium (Enoxaparin Inj 40 Mg/0.4 Ml Syr) 40 mg SQ Q24H NIEVES Stop: 02/10/22 19:24 Last Admin: 01/11/22 20:09 Dose: 40 mg Fish Oil ([place]-3 (Purified Fish Oil) 1 Gm Cap) 1 gm PO DAILY NIEVES Stop: 02/11/22 08:59 Last Admin: 01/12/22 12:39 Dose: 1 gm Guaifenesin (Guaifenesin Sugar Free 200 Mg/10 Ml Udc) 200 mg PO Q6H PRN PRN Reason: Cough Stop: 02/10/22 19:34 Last Admin: 01/12/22 16:19 Dose: 200 mg Lisinopril (Lisinopril 20 Mg Tab) 20 mg PO DAILY NIEVES Stop: 02/11/22 08:59 Last Admin: 01/12/22 09:33 Dose: 20 mg Pentoxifylline (Pentoxifylline 400mg Ext Rel Tab) 400 mg PO BIDM NIEVES Stop: 02/10/22 19:44 Last Admin: 01/12/22 09:33 Dose: 400 mg Vitamin D (Cholecalciferol 5,000 Units 125 Mcg Tab) 5,000 units PO DAILY NIEVES Stop: 02/11/22 08:59 Last Admin: 01/12/22 09:33 Dose: 5,000 units PG Care Time/CCT Total # of Minutes Spent Total Time Spent with Patient: Total time spent is greater than 50% in coordination of care (as documented) at patient's floor/unit and/or counseling patient: Coding Level of Care Code 37611 Office/Outpt Visit, New Diagnoses Mobitz (type) I (Wenckebach's) atrioventricular block I44.1 Frequent PVCs I49.3 Aortic stenosis I35.0 Hypertension I10 Dyslipidemia E78.5
[2022-01-12 17:17] LABS: Anion Gap 7.9 (3-11)
--- NOTE | 2022-01-12 17:32 | Discharge Summary ---
Date of Service January 12, 2022 Admission HPI Per Admitting Provider Kirby is an 86 year old male with a PMH significant for HTN, hyperlipidemia, adenocarcinoma of the prostate, mitral regurgitation, aortic valve sclerosis, and osteoporosis who presented to the [facility] ED on 01/11/22 after being sent from acute care for abnormal ECG. Per the ED staff, the patient developed a cough approximately one week ago. Today he went to acute care to be seen for his cough and then noticed his heart sounded irregular on exam. They obtained an ECG and were concerned for possible heart block and sent him to the ED. In the ED the patient was found to be afebrile, hemodynamically stable, and stable on room air. Labs were unremarkable including a high sensitivity troponin of 16.7. The patient was monitored on tele while in the ED and there was concern for possible Mobitz type II block. Chest xray was pending at the time of the admission. We were asked to admit the patient for further monitoring and workup of the possible arrhythmia. At the time of the exam the patient was resting comfortably in bed in no acute distress with his sitting bedside. He states that he has had a productive cough for the past week. The patient and his stay very active and he states that he has not experienced recent chest pain, SOB, light headedness, dizziness, or syncope. They are often outside hiking and biking but he has not noticed any recent tick bites. He states the he checks his blood pr essure a few times a week and the BP cuff also checks his heart rate. Recently he has noticed that his HR will fall into the 40's, normally his baseline is in the 60's. He has not noticed significant changes in his blood pressure. When asked, he denies symptoms when his HR is that low. When asked about previous heart murmurs he states that his old pcp who recently retired mentioned something about a murmur and doing surveillance echo every 6 months. I spoke to he and his about staying overnight to be monitored, obtaining a new echo, and being seen by cardiology, they would like to proceed with that plan. Discharge Data Allergies Allergy/AdvReac Type Severity Reaction Status Date / Time No Known Allergies Allergy Verified 01/11/22 15:45 Consultations 01/11/22 15:38 ED Decision to Admit Stat 01/11/22 16:25 Consult Cardiology Routine Hospital Course (1) Heart block AV second degree: -Admit to med tele -Patient is currently afebrile, hemodynamically stable, and stable on RA -Patient currently with irregular rhythm, ECG obtained in the ED looks more like a Mobitz type I block but difficult to tell -Patient has been asymptomatic -Spoke with Dr. Ruiz of Cardiology, appreciate his help, recommended observation on tele overnight and to obtain new echo -TTE ordered, will monitor on tele, Cardiology consult placed -AM CBC and BMP (2) Bronchitis: -No leukocytosis or left shift on labs from today -Chest xray without obvious consolidation, will wait for final read -Patient has been afebrile, will add on procal -Hold abx for now and treat symptomatically with Robitussin and DuoNebs -Confirmed with the patient that he has been on Lisinopril for 2+ years and has never developed a cough while on it (3) Hypertension: -Hemodynamically stable -Continue lisinopril Plan The patient was discussed with Dr. Garcia at the time of admission Discharge Plan Discharge Items Patient Disposition: Home - Self-Care Reason For Visit: ABNORMAL ECG Discharge Diagnosis: abnormal ECG Activity: Resume your previous activity Non-emergency contact: Primary Care Provider Call non-emergency contact if: you have any medication questions Follow-up/Referrals: Roverto Kowk, [Primary Care Provider] - Diet: Regular Addtl Attending Provider Instructions: It was a pleasure taking care of you. In regards to your heart rhythm, Dr. Toscano will order a 30 day heart monitor for you. His office will get this arranged for you. Once the 30 days have been completed, an appointment will be scheduled for his office. In regards to your cough, thankfully your chest x ray appears to be negative. Meaning no masses, fluid, or pneumonia was noted on the imaging. You also did not have a fever and your vital signs such as heart rate and respiration rate did not suggest an infection or sepsis. For now, will look at other causes. Bronchitis from a virus is a possibility. Given that the cough is one week old, will recommend to wait another week before considering antibiotics. We could also switch your lisinopril to losartan as lisinopril may cause a dry c ough. Will recommend followup in 1 week to reassess this cough. You may continue Robitussin while you are at home. Recommend a followup with PCP in 1-2 weeks. It was nice meeting you. Kindest regards, Harmeet Garcia MD Pending Studies at Discharge: No Stand-Alone Forms: [facility], Smoking Cessation Medications and DC Order Prescriptions: New losartan 50 mg tablet 50 mg PO DAILY Qty: 30 0RF Continued atorvastatin 20 mg tablet 20 mg PO DAILY cyanocobalamin (vitamin B-12) [Vitamin B-12] 1,000 mcg Tablet 1,000 mcg PO DAILY pentoxifylline 400 mg tablet extended release 400 mg PO BIDM herbal drugs Capsule 2 cap PO DAILY coenzyme Q10 [CoQ-10] 100 mg Capsule 100 mg PO DAILY psyllium husk [Metamucil] 0.52 gram Capsule 1.04 g PO DAILY sildenafil (pulm.hypertension) 20 mg tablet 20 - 1,000 mg PO DIRECTED PRN (Reason: Sexual Activity) cholecalciferol (vitamin D3) [Vitamin D3] 125 mcg (5,000 unit) Tablet 125 mcg PO DAILY omega 5-vul-kpw-fish oil [Fish Oil] 1,000 mg (120 mg-180 mg) Capsule 1 cap PO DAILY PreserVision AREDS-2 250-90-40-1 mg Capsule 1 tab PO BID Discontinued lisinopril 20 mg tablet 20 mg PO DAILY Discharge Orders: Discharge Order (Routine); Ordered 01/12/22 Ordered By: Harmeet Garcia Admission Data Admit Date/Time: 01/11/22 15:55 Attending Provider: Harmeet Garcia Admit Provider: Harmeet Garcia Primary Care Provider: Roverto Kwok Other Providers: Harmeet Garcia ; Ba Valero ; Marcello Hernández ; Sean Huang ; Reynold Canales ; Usman Ruiz ; Spenser Hillman Jr ; Ernesto Toscano ; Zahraa Kendrick ; Sola Mendoza ; Ludwin Wakler ; Jeffy Dooley ; James Isabel ; Mary El ; Ade Vasquez ; Richard Aguillon ; Abram Otero ; Joce Irwin ; Reynold Gunter V. Coding Diagnoses Heart block AV second degree I44.1 Bronchitis J40 Hypertension I10
[2022-01-15 16:35] LABS: 18KDIGG Band NON-REACTIVE; 23KDIGG Band NON-REACTIVE; 23KDIGM Band REACTIVE; 28KDIGG Band NON-REACTIVE; 30KDIGG Band NON-REACTIVE; 39KDIGG Band NON-REACTIVE; 39KDIGM Band NON-REACTIVE; 41KDIGG Band NON-REACTIVE; 41KDIGM Band NON-REACTIVE; 45KDIGG Band NON-REACTIVE; 58KDIGG Band NON-REACTIVE; 66KDIGG Band NON-REACTIVE; 93KDIGG Band NON-REACTIVE; Lyme Antibodies, WB IgG NEGATIVE (NEGATIVE); Lyme Antibodies, WB IgM NEGATIVE (NEGATIVE)
== END 2022-01-12 20:00 | disposition home or self-care (01) ==
LOC: 2N 12:24 → ED 12:24 → 2N 19:34

== ENCOUNTER 2025-01-15 16:58 | Inpatient (IN) ==
[2025-01-15 18:59] LABS: Hematocrit (blood only) 40.4 % (42.0-52.0); Hemoglobin 13.7 g/dl (14.0-18.0); Immature Granulocytes # (auto) 0.03 K/uL (0.01-0.20); Immature Granulocytes % (auto) 0.3 %; Mean Corpuscular Hemoglobin 32.3 pg (25.0-34.0); Mean Corpuscular Volume 95.3 fL (80.0-100.0); Platelet Count 153 K/uL (130-400); RDW Standard Deviation 46.2 fL (36.4-46.3); Red Blood Count 4.24 M/uL (4.70-6.10); White Blood Count 9.65 K/ul (4.8-10.8)
[2025-01-15 19:17] LABS: Anion Gap 6 (3-11); Blood Urea Nitrogen 20 mg/dl (6-23); Carbon Dioxide 30 mmol/L (21-32); Chloride 102 mmol/L (98-107); Potassium 4.1 mmol/L (3.5-5.1); Sodium 138 mmol/L (136-145)
[2025-01-15 19:18] LABS: Calcium 9.4 mg/dl (8.6-10.3); Glucose 99 mg/dl (70-99(Fasting))
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
--- NOTE | 2025-01-15 19:34 | XRay Report ---
Single view of the pelvis No comparison Impression Metallic beads overlying the prostate.Exam limited secondary to single image. Within the limitations of study no acute osseous pathology is identified. Electronically signed by Zeferino Josue 01-15-2025 7:34 PM
[2025-01-15 19:58] LABS: INR 1.2 (0.9-1.1); Prothrombin Time 12.2 Seconds (9.0-12.0)
[2025-01-15 20:05] LABS: Alanine Aminotransferase 25 U/L (7-52); Albumin Level 3.9 gm/dl (3.4-5.0); Alkaline Phosphatase 87 U/L (34-104); Bilirubin,Total 1.2 mg/dl (0.2-1.0); Total Protein 6.6 gm/dl (6.0-8.3)
[2025-01-15] MEDS ORDERED: MoRPHine SULFATE 4 MG/ML 1 ML CARP\\VIAL IV PRN (20:18)
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
[2025-01-15] MEDS: OPTIRAY 320 100ml IV ONE (20:48)
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
[2025-01-15 21:08] LABS: Appearance Urine Clear (Clear); Glucose Urine UA Negative (Negative)
--- NOTE | 2025-01-15 21:26 | CT Scan Report ---
Exam(s): CT ABDOMEN + PELVIS W/WO Contrast IV Amt: OPTIRAY 320 94ML EXAM: CT Abdomen and Pelvis Without and With Intravenous Contrast CLINICAL HISTORY: Reason for exam: abd pain, trauma. TECHNIQUE: Axial computed tomography images of the abdomen and pelvis without and with intravenous contrast. CTDI is 13.03 mGy and DLP is 1218.26 mGy-cm. Automated exposure control was utilized for the study. A dose lowering technique was utilized adhering to the principles of ALARA. CONTRAST: Patient received OPTIRAY 320 94ML of IV contrast COMPARISON: No relevant prior studies available. FINDINGS: ABDOMEN: Liver: Cysts within hepatic segment 4A measuring 1.2 cm. Gallbladder and bile ducts: Unremarkable. Pancreas: Cystic lesion in the pancreatic body measuring 1.5 x 1.2 cm incompletely characterized but statistically favored to represent a IPMN. No ductal dilation. Spleen: Unremarkable. Adrenals: Unremarkable. Kidneys and ureters: Unremarkable. No solid mass. No obstructing stones. No hydronephrosis. Stomach and bowel: Colonic diverticulosis without acute diverticulitis. PELVIS: Appendix: No findings to suggest acute appendicitis. Bladder: Geller catheter within the bladder. No stones. Reproductive: Brachytherapy beads in the prostate. ABDOMEN and PELVIS: Intraperitoneal space: Unremarkable. No free air. No significant fluid collection. Bones/joints: Acute right subcapital/basicervical femoral neck fracture. Soft tissues: Unremarkable. Vasculature: Aortobiiliac atherosclerotic calcifications. Lymph nodes: Unremarkable. IMPRESSION: 1. Acute right subcapital/basicervical femoral neck fracture. 2. 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 Recommend a contrast-enhanced, pancreas-protocol abdominal CT or MR in 2 years. Electronically signed by: Cesar Whiting MD 01/15/25 21:25 PM
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
[2025-01-15] MEDS ORDERED: GLUCOSE 40% GEL 15 GM TUBE PO PRN (23:49)
[2025-01-15] MEDS ORDERED: ONDANSETRON INJ 2 MG/ML 2 ML VIAL IV PRN (23:49)
[2025-01-15] MEDS ORDERED: NALOXONE HCL 0.4 MG/1 ML VIAL/CARP IV PRN (23:49)
[2025-01-15] MEDS ORDERED: DEXTROSE 50% 50 ML SYRINGE IV PRN (23:49)
[2025-01-15] MEDS ORDERED: CARBOHYDRATES FOR HYPOGLYCEMIA PO PRN (23:49)
[2025-01-15] MEDS ORDERED: MAGNESIUM HYDROXIDE SUSP 30 ML UDC PO PRN (23:49)
[2025-01-15] MEDS ORDERED: GLUCOSE 10 TAB/TUBE PO PRN (23:49)
[2025-01-15] MEDS ORDERED: GLUCAGON FOR INJ 1 MG VIAL SQ PRN (23:49)
[2025-01-16] MEDS: LACTATED RINGER'S 1,000 ML IV SCH (00:15)
[2025-01-16] MEDS: ACETAMINOPHEN 1,000 MG/100 ML VIAL IV PRN (00:15)
[2025-01-16] MEDS: ATORVASTATIN 40 MG TAB PO SCH (00:24)
[2025-01-16] MEDS: INFLUENZA VACC TS2025-26(65y+)/PF (IIV3) 0.5mL Syr IM ONE (00:25)
[2025-01-16 06:28] LABS: Hematocrit (blood only) 37.8 % (42.0-52.0); Hemoglobin 12.7 g/dl (14.0-18.0); Immature Granulocytes # (auto) 0.03 K/uL (0.01-0.20); Immature Granulocytes % (auto) 0.3 %; Mean Corpuscular Hemoglobin 32.0 pg (25.0-34.0); Mean Corpuscular Volume 95.2 fL (80.0-100.0); Platelet Count 160 K/uL (130-400); RDW Standard Deviation 46.6 fL (36.4-46.3); Red Blood Count 3.97 M/uL (4.70-6.10); White Blood Count 10.07 K/ul (4.8-10.8)
[2025-01-16 06:54] LABS: Alanine Aminotransferase 19.0 U/L (7-52); Albumin Globulin Ratio 1.6 (0.9-2); Albumin Level 3.6 gm/dl (3.4-5.0); Alkaline Phosphatase 73.0 U/L (34-104); Anion Gap 7.0 (3-11); Bilirubin,Total 1.7 mg/dl (0.2-1.0); Blood Urea Nitrogen 20.0 mg/dl (6-23); Calcium 8.6 mg/dl (8.6-10.3); Carbon Dioxide 28.0 mmol/L (21-32); Chloride 104.0 mmol/L (98-107); Creatinine Clr Calc Pharmacy 40.5 ml/min; Globulin 2.3 gm/dl (2.5-4.0); Glucose 100.0 mg/dl (70-99(Fasting)); Potassium 3.9 mmol/L (3.5-5.1); Sodium 139.0 mmol/L (136-145); Total Protein 5.9 gm/dl (6.0-8.3)
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
[2025-01-16] MEDS: LOSARTAN POTASSIUM 50 MG TAB PO SCH (08:35)
[2025-01-16] MEDS: INSULIN ASPART PER UNIT CHARGE SC SCH (08:50)
[2025-01-16] MEDS ORDERED: LIDOCAINE 2% 2 ML VIAL/AMP(20MG/ML) INFIL ONE ×2 (11:41→12:12)
[2025-01-16] MEDS ORDERED: ONDANSETRON INJ 2 MG/ML 2 ML VIAL ONE (11:41)
[2025-01-16] MEDS ORDERED: PROPOFOL IV EMULSION 10 MG/ML 20 ML VIAL IV ONE (11:41)
--- NOTE | 2025-01-16 11:44 | Anesthesiology Consultation ---
Date of Service January 16, 2025 Assessment & Plan (1) Encounter for pre-operative examination: Chart Review Chart Review: Acceptable Risk for Surgery and Patient NOT seen in Pre Admission Testing Consults Requested none History Surgery Operation Date: 01/16/25 07:00 Proposed Procedures p Right Hip Hemiarthroplasty - Gabriel Howell DO Height/Weight Height: 5 ft 9 in Weight: 72 kg Allergies Allergy/AdvReac Type Severity Reaction Status Date / Time No Known Allergies Allergy Verified 01/12/25 14:08 Medications Home Medications Medication Instructions Recorded Confirmed Last Taken cholecalciferol (vitamin D3) 125 125 mcg PO QAM 01/11/22 01/15/25 01/15/25 mcg (5,000 unit) tablet (Vitamin D3) cyanocobalamin (vitamin B-12) 1,000 mcg PO QAM 01/11/22 01/15/25 01/15/25 1,000 mcg tablet (Vitamin B-12) omega 5-qlf-ire-fish oil 1,000 mg 1 cap PO QAM 01/11/22 01/15/25 01/15/25 (120 mg-180 mg) capsule (Fish Oil) multivitamin with minerals-folic 1 tab PO QAM 01/13/22 01/15/25 01/15/25 acid 120 mcg chewable tablet (Centrum Adult 50 Plus Fresh-Fruity) apixaban 5 mg tablet (Eliquis) 5 mg PO BID #180 tabs 05/10/24 01/15/25 01/15/25 am dose 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,[employer]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,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 #1 ea 05/17/24 01/15/25 Unknown (FreeStyle Chaim 3 [place]) 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 sensor (FreeStyle #2 ea 06/20/24 01/15/25 Unknown Chaim 3 Plus Sensor device) amoxicillin 500 mg capsule 2,000 mg (4 x 500 mg) PO .COMPLEX 07/20/24 01/15/25 Unknown #4 caps vitamins A,C,Y-peco-uxgaot 4,296 1 cap PO BID 08/01/24 01/15/25 01/15/25 mcg-226 mg-90 mg capsule am dose (PreserVision AREDS) atorvastatin 40 mg tablet 40 mg PO HS #90 tabs 11/23/24 01/15/25 01/14/25 amlodipine 5 mg tablet 5 mg PO QAM 01/15/25 01/15/25 01/15/25 metformin 500 mg tablet 500 mg PO QAM 01/15/25 01/15/25 01/15/25 olmesartan 40 mg tablet 40 mg PO QAM 01/15/25 01/15/25 01/15/25 pentoxifylline 400 mg 400 mg PO BID 01/15/25 01/15/25 01/15/25 tablet,extended release am dose Active Medications Generic Name Dose Route Start Last Admin Trade Name Freq PRN Reason Stop Dose Admin Amlodipine Besylate 5 mg 01/16/25 09:00 01/16/25 08:35 Amlodipine Besylate 5 Mg Tab PO 02/15/25 08:59 5 mg QAM NIEVES Administration Atorvastatin Calcium 40 mg 01/15/25 23:49 01/16/25 00:24 Atorvastatin 40 Mg Tab PO 02/14/25 23:48 Not Given HS NIEVES Acetaminophen 1,000 mg in 100 mls @ 400 mls/hr 01/15/25 23:49 01/16/25 10:50 Ofirmev IV 01/18/25 23:48 Infused Q8H PRN Infusion Pain or Fever Lactated Ringer's 1,000 mls @ 80 mls/hr 01/15/25 23:49 01/16/25 00:15 Lr IV 01/16/25 12:18 80 mls/hr .[id number] NIEVES Administration Insulin Aspart 0 units 01/16/25 08:15 01/16/25 08:50 Insulin Aspart Per Unit Charge SC 02/15/25 08:14 Not Given Q6 NIEVES Losartan Potassium 100 mg 01/16/25 09:00 01/16/25 08:35 Losartan Potassium 50 Mg Tab PO 02/15/25 08:59 100 mg QAM NIEVES Administration Past Medical History Medical History Prostate cancer Primary osteoarthritis of left knee Past Family History Family History Father Myocardial infarction Denies family history of Ovarian cancer Prostate cancer Breast cancer Colorectal cancer Past Surgical History Surgical History S/P placement of cardiac pacemaker H/O aortic valve replacement Status post Mohs surgery S/P hernia repair Social History Smoking Status: Never smoker Do You Dip or Chew Tobacco: No Hx Alcohol Use: Yes Alcohol type: beer and wine alcohol intake frequency: a few times a month Hx Substance Use: No substance use type: does not use Physical Exam Vital Signs Last Vital Signs Temp 98.6 F 01/16/25 11:11 Pulse 61 01/16/25 11:11 Resp 18 01/16/25 11:11 BP 143/77 H 01/16/25 11:11 Pulse Ox 94 01/16/25 11:11 O2 Del Method Room Air 01/16/25 11:11 Testing Laboratory Results 01/16/25 05:33 01/16/25 05:33 PT 12.2 Seconds (9.0-12.0) H 01/15/25 18:41 INR 1.2 (0.9-1.1) H 01/15/25 18:41 Urine Color Yellow 01/15/25 20:40 Urine Appearance Clear (Clear) 01/15/25 20:40 Urine pH 7.5 (4.5-7.5) 01/15/25 20:40 Ur Specific [place] 1.012 (1.000-1.030) 01/15/25 20:40 Urine Protein Negative (Negative) 01/15/25 20:40 Urine Glucose (UA) Negative (Negative) 01/15/25 20:40 Urine Ketones Trace (Negative) H 01/15/25 20:40 Urine Nitrite Negative (Negative) 01/15/25 20:40 Ur Leukocyte Esterase Negative (Negative) 01/15/25 20:40 Electrocardiogram Date: 01/16/25 V Paced rhythm with PVCs
--- NOTE | 2025-01-16 12:15 | History & Physical Bridge Note ---
Date of Service January 16, 2025 History & Physical Bridge Note I have examined the patient, reviewed the History & Physical and in the interval since the performance of the History & Physical I have noted the following changes of clinical significance: no changes noted
[2025-01-16] MEDS ORDERED: ROPIVACAINE 0.5% 5 MG/ML 30 ML VIAL ONE (12:34)
[2025-01-16] MEDS ORDERED: SODIUM CHLORIDE 0.9% PF INJ 10 ML VIAL ONE (12:35)
[2025-01-16] MEDS: ROPIVACAINE 0.5% HCL/PF 246 MG, Ketorolac (*for OR use only*) 30 MG, EPINEPHrine 30MG/3... INFIL SCH (14:13)
--- NOTE | 2025-01-16 15:12 | Operative Report ---
PG Post Operative Report Pre & Post Diagnosis Operation Date: 01/16/25 07:00 Pre-Op Diagnosis: Right Femoral Neck Fracture Post-Op Diagnosis: Right Femoral Neck Fracture I identified the patient and participated in the time-out.: Yes Procedure Operation Date: 01/16/25 07:00 Actual Procedures p Right Hip Hemiarthroplasty(Right) - Gabriel Howell DO Surgeon Gabriel Howell DO Resident Intern Kel Sánchez PA-C Estimated Blood Loss 250 Findings Consistent with Post-Op Diagnosis Specimens Right femoral head Description of Procedure On January 16, 2025 Kirby was brought down from her hospital room to the preoperative holding area. The operative extremity identified and signed. He was given a preoperative antibiotic and a spinal anesthetic. He was taken back the operating room and laid on the table in supine position. He is given basic sedation. The right leg was then brought out to a Purist leg positioner. The right hip was then prepped and draped sterile fashion. A timeout was done. The patient and the operative extremity was properly identified. An anterior approach was used. Dissection was taken down through the fascia. The rectus was retracted anteriorly and the vastus was retracted laterally. The circumflex vessels were ligated. The capsule was exposed. The capsule was then incised and tagged for later repair. A femoral neck cut was made and then the head and neck were removed. The acetabulum was then exposed. Time was spent removing any incarcerated ligamentum or labrum from inside the acetabulum. Several head trials were used and a size 56 seem to be the best fit. The proximal femur was then exposed. Sequential broaching up to a size 9 broach was done. A 28 mm head with a 0 neck was then placed and a 56 mm shell was placed over that. The hip was then reduced. Fluoroscopic images showed near anatomic alignment and good stability. The hip was then dislocated. The final size 7 mm Esther echo stem was then cemented into place. Once cement had hardened, a 28 mm head with a +0 neck was then snapped into a 56 mm shell. The head and shell assembly was then impacted onto the femoral stem. The hip was then reduced. Final fluoroscopic images showed anatomic reduction of the hip. The surgical site was then irrigated. The capsule was closed with #1 Vicryl. The fascia was closed with #0 PDS suture. Skin was closed with 2-0 Vicryl, 3-0 Vicryl, and zip ties. A Silverlon dressing was placed. He was then transferred back to a hospital bed and taken to the postanesthesia care unit in stable condition. He tolerated the procedure well. Kel Sánchez PA-C, was present for the entire procedure. He was critical for patient positioning, prepping, draping, retraction exposure, wound closure and application of sterile dressing. I attest to the content of the Intraoperative Record and any orders documented therein. Any exceptions are noted below. I attest to the content of the Intraoperative Record and any orders documented therein. Any exceptions are noted below.
--- NOTE | 2025-01-16 15:42 | Fluoroscopy Report ---
FL hip RT 1V CLINICAL HISTORY: RIGHT HIP IN OR COMPARISON STUDY: 01/15/2025 FLUOROSCOPY TIME: 8 seconds FLUOROSCOPY IMAGES: 3 EXPOSURE DOSE: 0.9 mGy FINDINGS: Fluoroscopy was provided for right hip prosthesis. IMPRESSION: Intraoperative fluoroscopy. ACT 112: Negative or not required by law. Electronically signed by: Bairon Harris M.D. 01/16/2025 3:41 PM
--- NOTE | 2025-01-16 15:45 | Electrocardiogram Report ---
Test Reason : Blood Pressure : */* mmHG Vent. Rate : 68 BPM Atrial Rate : 357 BPM P-R Int : * ms QRS Dur : 110 ms QT Int : 438 ms P-R-T Axes : * -58 92 degrees QTcB Int : 465 ms Ventricular-paced rhythm with premature ventricular or aberrantly conducted complexes Underlying atrial fibrillation Abnormal ECG When compared with ECG of 06-May-2024 09:24, Vent. rate has decreased by 19 bpm Confirmed by Usman Ruiz ([id number]) on 01/16/2025 3:44:49 PM Referred By: REFERRED SELF Confirmed By: Usman Ruiz
--- NOTE | 2025-01-16 15:59 | Anesthesiology Progress Note ---
Date of Service January 16, 2025 Anesthesia Post Procedure Vital Signs Vital Signs: Temp Pulse Pulse Pulse Resp BP BP 01/16/25 15:55 98.2 F 74 18 01/16/25 15:45 73 13 01/16/25 15:35 72 19 01/16/25 15:25 98.8 F 61 14 01/16/25 11:51 98.1 F 58 L 18 01/16/25 11:11 98.6 F 61 18 143/77 H 01/16/25 07:57 68 01/16/25 07:57 01/16/25 07:53 97.9 F 57 L 18 131/76 01/16/25 07:00 01/16/25 03:29 98.1 F 56 L 20 130/73 01/16/25 00:26 01/16/25 00:09 99.0 F 96 H 18 01/15/25 23:49 99.0 F 96 H 18 01/15/25 22:56 62 18 01/15/25 22:00 60 15 01/15/25 20:00 60 18 01/15/25 19:00 60 18 01/15/25 18:32 61 16 01/15/25 17:30 68 14 01/15/25 17:03 97.9 F 85 16 146/83 H BP Pulse Ox Pulse Ox O2 Del Method O2 Del Method O2 Flow Rate 01/16/25 15:55 143/67 H 94 Room Air 0 01/16/25 15:45 136/71 92 Room Air 0 01/16/25 15:35 144/82 H 97 Oxymask 4 01/16/25 15:25 137/70 94 Oxymask 6 01/16/25 11:51 149/82 H 96 Room Air 01/16/25 11:11 94 Room Air 01/16/25 07:57 01/16/25 07:57 Room Air 01/16/25 07:53 96 Room Air 01/16/25 07:00 95 Room Air 01/16/25 03:29 96 Room Air 01/16/25 00:26 Room Air 01/16/25 00:09 159/83 H 95 Room Air 01/15/25 23:49 159/83 H 95 Room Air 01/15/25 22:56 138/82 96 Room Air 01/15/25 22:00 142/84 H 95 Room Air 01/15/25 20:00 136/78 95 Room Air 01/15/25 19:00 160/93 H 96 Room Air 01/15/25 18:32 137/84 95 Room Air 01/15/25 17:30 143/85 H 98 Room Air 01/15/25 17:03 94 Room Air Pain Intensity Bilateral Hip: Pain Intensity: 5 Transfer of Care Handoff Completed per policy Notes Mental Status: alert / awake / arousable and participated in evaluation Patient Amnestic to Procedure: Yes Nausea / Vomiting: adequately controlled Pain: adequately controlled Airway Patency, RR, SpO2: stable & adequate BP & HR: stable & adequate Hydration State: stable & adequate Anesthetic Complications: no major complications apparent and Pt Satisfied with anesthetic care
--- NOTE | 2025-01-16 16:54 | XRay Report ---
History: Arthroplasty Comparison: None Findings/impression: There is no acute fracture or dislocation. Alignment is anatomic. Postoperative changes of right hip arthroplasty. Intact. Postoperative soft tissue swelling and air. Electronically signed by Jeffy Mott 01-16-2025 4:53 PM
[2025-01-16] MEDS: ASPIRIN 81 MG ECTAB PO SCH (20:44)
[2025-01-17 02:21] VITALS: RESP 18
[2025-01-17] MEDS: KETOROLAC TROMETHAMINE 15 MG/ML VIAL IV ONE (04:31)
[2025-01-17] MEDS: LACTATED RINGER'S 1,000 ML IV SCH (04:31)
[2025-01-17] MEDS: CYCLOBENZAPRINE HCL 10 MG TAB PO STA (05:56)
[2025-01-17 06:21] LABS: Hematocrit (blood only) 35.3 % (42.0-52.0); Hemoglobin 12.2 g/dl (14.0-18.0); Immature Granulocytes # (auto) 0.04 K/uL (0.01-0.20); Immature Granulocytes % (auto) 0.3 %; Mean Corpuscular Hemoglobin 32.6 pg (25.0-34.0); Mean Corpuscular Volume 94.4 fL (80.0-100.0); Platelet Count 144 K/uL (130-400); RDW Standard Deviation 46.6 fL (36.4-46.3); Red Blood Count 3.74 M/uL (4.70-6.10); White Blood Count 12.45 K/ul (4.8-10.8)
[2025-01-17 06:37] LABS: Anion Gap 6.0 (3-11); Blood Urea Nitrogen 26.0 mg/dl (6-23); Calcium 8.4 mg/dl (8.6-10.3); Carbon Dioxide 27.0 mmol/L (21-32); Chloride 104.0 mmol/L (98-107); Creatinine Clr Calc Pharmacy 36.2 ml/min; Glucose 150.0 mg/dl (70-99(Fasting)); Magnesium 1.9 mg/dl (1.7-2.4); Potassium 4.4 mmol/L (3.5-5.1); Sodium 137.0 mmol/L (136-145)
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
[2025-01-17 09:04] LABS: Hemoglobin A1C 6.6 % (4.5-5.6)
--- NOTE | 2025-01-17 10:24 | Orthopedic Progress Note ---
Date of Service January 17, 2025 Assessment & Plan (1) Closed displaced fracture of right femoral neck: * Continue Current Treatment * S/p right hip hemiarthroplasty * Weight bearing status: WBAT, no precautions * Daily treatment: Physical Therapy/ Occupational Therapy per protocol * Dressing change PRN * Pain control * Continue to monitor for ABLA * DVT prophylaxis, ok to resume from ortho standpoint * Disposition: TBD * Office/hospital f/u 2 weeks for progress check and staple/suture removal * Remainder care per primary team Subjective Active Problems: S/p right hip hemiarthroplasty POD 1 89 y/o male s/p right. Doing well overall, pain managed and improved function. Denies fever/chills, chest pain/SOB, nausea/vomiting. Otherwise no complaints. Review of Systems All systems reviewed & are unremarkable except as noted in HPI & below. Physical Exam . * General: Alert and oriented, no acute distress * Constitutional: well-developed, well-nourished. * Respiratory: Normal respiratory effort, no distress * Gastrointestinal: No tenderness to palpation, no rigidity or guarding. * Skin: No rash or lesion. * Neurologic: Grossly normal * Musculoskeletal: Right hip surgical dressing with moderate bloody saturation, not removed for exam. Otherwise no obvious deformity or overlying skin changes. Diffuse TTP proximal thigh and hip region. Otherwise no specific tend erness of distal thigh, lower leg, foot/ankle. AROM hip flexion intact. AROM foot/ankle intact. Sensation intact plantar/dorsal foot. Brisk capillary refill. Results & Data Results & Data Laboratory Results . Diagnostic Findings . Hip X-Ray 01/16/25 00:00 FL hip RT 1V CLINICAL HISTORY: RIGHT HIP IN OR COMPARISON STUDY: 01/15/2025 FLUOROSCOPY TIME: 8 seconds FLUOROSCOPY IMAGES: 3 EXPOSURE DOSE: 0.9 mGy FINDINGS: Fluoroscopy was provided for right hip prosthesis. IMPRESSION: Intraoperative fluoroscopy. ACT 112: Negative or not required by law. Electronically signed by: Bairon Harris M.D. 01/16/2025 3:41 PM Pelvis X-Ray 01/16/25 16:11 History: Arthroplasty Comparison: None Findings/impression: There is no acute fracture or dislocation. Alignment is anatomic. Postoperative changes of right hip arthroplasty. Intact. Postoperative soft tissue swelling and air. Electronically signed by Jeffy Mott 01-16-2025 4:53 PM PG Care Time/CCT Total # of Minutes Spent Total Time Spent with Patient: Total time spent is greater than 50% in coordination of care (as documented) at patient's floor/unit and/or counseling patient: Coding Level of Care Code 51864 Post Operative Follow-Up Diagnoses Closed displaced fracture of right femoral neck S72.001A
[2025-01-17] MEDS: MoRPHine SULFATE 2 MG/ML CARP IV PRN (16:32)
[2025-01-17] MEDS: DOCUSATE SODIUM 100 MG CAP PO PRN (20:49)
[2025-01-17] MEDS: MELATONIN 3 MG TAB PO PRN (20:49)
[2025-01-17] MEDS: ACETAMINOPHEN 500 MG TAB PO SCH (20:49)
--- NOTE | 2025-01-18 11:14 | Orthopedic Progress Note ---
Date of Service January 18, 2025 Assessment & Plan (1) Closed displaced fracture of right femoral neck: * Continue Current Treatment * S/p right hip hemiarthroplasty * Weight bearing status: WBAT, no precautions * Daily treatment: Physical Therapy/ Occupational Therapy per protocol * Dressing change PRN * Pain control * Continue to monitor for ABLA * DVT prophylaxis, ok to resume from ortho standpoint * Disposition: Home, home PT * Office/hospital f/u 2 weeks for progress check and staple/suture removal * Remainder care per primary team Subjective Active Problems: S/p right hip hemiarthroplasty POD 2 89 y/o male s/p right. Doing well overall, pain managed and improved function. Denies fever/chills, chest pain/SOB, nausea/vomiting. Otherwise no complaints. Review of Systems All systems reviewed & are unremarkable except as noted in HPI & below. Physical Exam * Musculoskeletal: Right hip surgical dressing CDI after being changed earlier this morning, not removed for exam. Otherwise no obvious deformity or overlying skin changes. Diffuse TTP proximal thigh and hip region. Otherwise no specific tenderness of distal thigh, lower leg, foot/ankle. AROM hip flexion intact. AROM foot/ankle intact. Sensation intact plantar/dorsal foot. Brisk capillary refill. Results & Data Results & Data Laboratory Results . Diagnostic Findings . PG Care Time/CCT Total # of Minutes Spent Total Time Spent with Patient: Total time spent is greater than 50% in coordination of care (as documented) at patient's floor/unit and/or counseling patient: Coding Level of Care Code 62510 Post Operative Follow-Up Diagnoses Closed displaced fracture of right femoral neck S72.001A
[2025-01-18 11:31] VITALS: BP 110/62; PULSE 62; TEMP 97.2; O2SAT 92
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
== END 2025-01-18 14:55 | disposition home health service (06) | DRG 521 ==
LOC: ED 16:58 → SUATTDRO 20:28 → 2S 20:28